=== PATIENT | female | born 2000 | race African-American/Black ===

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

== ENCOUNTER 2021-03-09 07:43 | Outpatient (CLI) | payer BC | END 2021-03-09 07:44 | disposition home or self-care (01) | LOC: BICULT 07:43 | DX: R10.2 Pelvic and perineal pain (principal); N83.201 Unspecified ovarian cyst, right side | CPT/HCPCS: 76856 ==